=== PATIENT | female | born 1935 | race Caucasian/White ===

== ENCOUNTER 2017-03-23 16:14 | Emergency (ER) | payer MEDICARE, BC ==
[2017-03-23] MEDS ORDERED: Lactated Ringers 1,000 ML IV ONE (17:08)
--- NOTE | 2017-03-23 17:10 | EDM.PDOC ---
ED HPI GENERAL MEDICAL PROBLEM - General Chief Complaint: Genitourinary Problem Stated Complaint: SENT FROM CLINIC Time Seen by Provider: 03/23/17 16:50 Source of Information: Reports: Patient, Family, Old Records History Limitations: Reports: No Limitations - History of Present Illness INITIAL COMMENTS - FREE TEXT/NARRATIVE: 82 yo female went to a local clinic today for fatigue. Her blood work showed an elevated creatinine so she was referred to the ER. She reports also dyspnea on exertion as well for the past few weeks or months. No vomiting or fever or pain. Has been eating and drinking OK. Sleeps a lot more than usual. No CLAYTON or nausea. Also has gradually increasing difficulty controlling her urine. labs today: Hbg 11.6 BUN 46 Cr 3.75 glc 315 09/30/16 13.7 1 yr ago 19 1.28 128 Onset: Gradual Duration: Week(s):, Getting Worse Location: Reports: Generalized Quality: Reports: Other (no pain) Severity: Moderate Improves with: Reports: Rest Worsens with: Reports: Movement Context: Reports: Other (unknown) Associated Symptoms: Reports: Malaise, Shortness of Breath (with exertion only) , Weakness (no localized.). 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 Denies: Fever, Chills, Diaphoresis, Decreased Appetite HEENT: Reports: No Symptoms Respiratory: Reports: Shortness of Breath (With exertion only). Denies: Wheezing, Cough, Sputum, Hemoptysis Cardiovascular: Reports: No Symptoms Endocrine: Reports: Fatigue GI/Abdominal: Reports: No Symptoms : Reports: Incontinence Musculoskeletal: Reports: No Symptoms Skin: Reports: No Symptoms Neurological: Reports: Weakness (mild diffuse) Psychiatric: Reports: No Symptoms ED EXAM, GENERAL - Physical Exam Exam: See Below Exam Limited By: No Limitations General Appearance: Alert, WD/WN, No Apparent Distress, Obese Eye Exam: Bilateral Eye: Normal Inspection Ears: Normal External Exam, Normal Canal, Hearing Grossly Normal, Normal TMs Ear Exam: Bilateral Ear: Auricle Normal, Canal Normal, TM normal Nose: Normal Inspection, Normal Mucosa, No Blood Throat/Mouth: Normal Inspection, Normal Lips, Normal Teeth, Normal Oropharynx, Normal Voice, No Airway Compromise Head: Atraumatic, Normocephalic Neck: Normal Inspection, Supple, Non-Tender Respiratory/Chest: No Respiratory Distress, Lungs Clear, Normal Breath Sounds, No Accessory Muscle Use Cardiovascular: Regular Rate, Rhythm, No Edema GI/Abdominal: Normal Bowel Sounds, Non-Tender, No Distention Back Exam: Normal Inspection. No: CVA Tenderness (R), CVA Tenderness (L) Extremities: Normal Inspection, Normal Range of Motion, Non-Tender, No Pedal Edema Neurological: Alert, Oriented, CN II-XII Intact, Normal Cognition, No Motor/ Sensory Deficits Psychiatric: Normal Affect, Normal Mood Skin Exam: Warm, Dry, Intact, Normal Color, No Rash Lymphatic: No Adenopathy Course - Vital Signs Last Recorded V/S: Last Vital Signs Temp 36.7 C 03/23/17 16:42 Pulse 99 03/23/17 16:42 Resp 16 03/23/17 16:42 BP 140/71 03/23/17 16:42 Pulse Ox 93 L 03/23/17 16:42 - Orders/Labs/Meds Orders: Active Orders 24 hr Category Date Time Status Orthostatic Vital Signs [RC] ASDIRECTED Care 03/23/17 16:19 Active Lactated Ringers [Ringers, Lactated] 1,000 ml Med 03/23/17 17:08 Active IV BOLUS Medication Orders Lactated Ringer's (Ringers, Lactated) 1,000 mls @ 1,000 mls/hr IV BOLUS ONE Stop: 03/23/17 18:07 Meds: Medications Generic Name Dose Route Start Last Admin Trade Name Freq PRN Reason Stop Dose Admin Lactated Ringer's 1,000 mls @ 1,000 mls/hr 03/23/17 17:08 Ringers, Lactated IV 03/23/17 18:07 BOLUS ONE Departure - Departure Time of Disposition: 17:45 Disposition: DC/Tfer to [facility] 02 Condition: Fair Clinical Impression: Renal failure (ARF), acute on chronic Qualifiers: Acute renal failure type: unspecified Chronic kidney disease stage: unspecified stage Qualified Code(s): N17.9 - Acute kidney failure, unspecified; N18.9 - Chronic kidney disease, unspecified; N18.9 - Chronic kidney disease, unspecified - Discharge Information Referrals: Rosalba Garcia PA [Primary Care Provider] - Forms: ED Department Discharge - My Orders Last 24 Hours: My Active Orders 03/23/17 16:19 Orthostatic Vital Signs [RC] ASDIRECTED 03/23/17 17:08 Lactated Ringers [Ringers, Lactated] 1,000 ml IV BOLUS - Assessment/Plan Last 24 Hours: My Active Orders 03/23/17 16:19 Orthostatic Vital Signs [RC] ASDIRECTED 03/23/17 17:08 Lactated Ringers [Ringers, Lactated] 1,000 ml IV BOLUS
== END 2017-03-23 18:16 ==
LOC: JP.ED 16:14
DX: N17.9 Acute kidney failure, unspecified (principal); E11.22 Type 2 diabetes mellitus with diabetic chronic kidney disease; N18.9 Chronic kidney disease, unspecified
CPT/HCPCS: 96360; 99284; J7120

== ENCOUNTER 2017-05-03 09:49 | Emergency (ER) | payer MEDICARE, BC ==
--- NOTE | 2017-05-03 10:15 | EDM.PDOC ---
ED HPI GENERAL MEDICAL PROBLEM - General Chief Complaint: Genitourinary Problem Stated Complaint: KIDNEY TUBE NOT DRAINING Time Seen by Provider: 05/03/17 10:38 Source of Information: Reports: Patient History Limitations: Reports: No Limitations - History of Present Illness INITIAL COMMENTS - FREE TEXT/NARRATIVE: pt has a history of a obstructive uropathy She had urostomy tubes placed the 28th off Dec. They have been draining well until last nite when the left tube was no longer draining. Onset: Other ( the tube stopped draining last nite. She has good drainage from the rt. ) Duration: Hour(s): Location: Reports: Abdomen, Other (pt has a nephrostomy tube which is not draining. ) Quality: Reports: Other (no pain. ) Associated Symptoms: Reports: No Other Symptoms, Other ( Pt has no increased pain or temp. 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, Type II - Past Surgical History Other GI Surgeries/Procedures: PROLAPSED RECTUM Female Surgical History: Reports: Hysterectomy Other Female Surgeries/Procedures: PROLAPSED UTERUS Musculoskeletal Surgical History: Reports: Hip Replacement Social & Family History - Tobacco Use Smoking Status *Q: Unknown Ever Smoked ED ROS GENERAL - Review of Systems Review Of Systems: See Below Constitutional: Reports: No Symptoms HEENT: Reports: No Symptoms Respiratory: Reports: No Symptoms Cardiovascular: Reports: No Symptoms Endocrine: Reports: No Symptoms GI/Abdominal: Reports: No Symptoms : Reports: Other (pt had bilateral nephostomy tubes. ) Musculoskeletal: Reports: No Symptoms ED EXAM, RENAL/ - Physical Exam Exam: See Below Text/Narrative:: pt is alert and comfortable. Her neprostomy tube on the left is not draining. Exam Limited By: No Limitations General Appearance: Alert, Anxious Ears: Normal TMs Nose: Normal Inspection Throat/Mouth: Normal Inspection Head: Atraumatic Neck: Normal Inspection Respiratory/Chest: No Respiratory Distress Cardiovascular: Regular Rate, Rhythm (Female) Exam: Other (pt has a nephrostomy tube on the left that is not draining. It was irrigated last nite and seemed to be open. When we went to irrigate here it was noed that te stop cock was actually closed and when this was opend up there was good drainage. ) Rectal (Female) Exam: Deferred Back Exam: Normal Inspection Extremities: Normal Inspection Neurological: Alert, Oriented, Normal Cognition Course - Vital Signs Last Recorded V/S: Last Vital Signs Temp 36.6 C 05/03/17 10:25 Pulse 69 05/03/17 10:25 Resp 16 05/03/17 10:25 BP 144/70 H 05/03/17 10:25 Pulse Ox 95 05/03/17 10:25 - Orders/Labs/Meds Orders: Active Orders 24 hr Category Date Time Status CULTURE URINE [RM] Stat Lab 05/03/17 11:26 Received Labs: Laboratory Tests 05/03/17 05/03/17 05/03/17 Range/Units 10:46 10:46 10:46 WBC 7.1 (4.5-11.0) K/uL RBC 4.00 (3.30-5.50) M/uL Hgb 11.6 L (12.0-15.0) g/dL Hct 37.4 (36.0-48.0) % MCV 94 (80-98) fL MCH 29 (27-31) pg MCHC 31 L (32-36) % Plt Count 293 (150-400) K/uL Neut % (Auto) 76 H (36-66) % Lymph % (Auto) 14 L (24-44) % [place] % (Auto) 8 H (2-6) % Eos % (Auto) 1 L (2-4) % Baso % (Auto) 0 (0-1) % Sodium 142 (140-148) mmol/L Potassium 3.6 (3.6-5.2) mmol/L Chloride 108 (100-108) mmol/L Carbon Dioxide 23 (21-32) mmol/L Anion Gap 11.5 (5.0-14.0) mmol/L BUN 24 H (7-18) mg/dL Creatinine 2.0 H (0.6-1.0) mg/dL Est Cr Clr Drug Dosing 17.45 mL/min Estimated GFR (MDRD) 24 L (>60) Glucose 124 H (74-106) mg/dL Calcium 9.2 (8.5-10.1) mg/dL Total Bilirubin 0.4 (0.2-1.0) mg/dL AST 12 L (15-37) U/L ALT 14 (12-78) U/L Alkaline Phosphatase 67 (46-116) U/L Total Protein 6.3 L (6.4-8.2) g/dL Albumin 3.1 L (3.4-5.0) g/dL Globulin 3.2 (2.3-3.5) g/dL Albumin/Globulin Ratio 1.0 L (1.2-2.2) Urine Color Yellow Urine Appearance Cloudy Urine pH 6.0 (4.5-8.0) Ur Specific [place] 1.020 (1.008-1.030) Urine Protein 100 H (NEGATIVE) mg/dL Urine Glucose (UA) 50 H (NEGATIVE) mg/dL Urine Ketones Negative (NEGATIVE) mg/dL Urine Occult Blood Large (NEGATIVE) Urine Nitrite Positive H (NEGATIVE) Urine Bilirubin Negative (NEGATIVE) Urine Urobilinogen Normal (NORMAL) mg/dL Ur Leukocyte Esterase Large (NEGATIVE) Urine RBC 10-20 H (0-5) Urine WBC Packed H (0-5) Ur Epithelial Cells Not seen Amorphous Sediment Not seen Urine Bacteria Many Urine Mucus Not seen - Re-Assessments/Exams Free Text/Narrative Re-Assessment/Exam: 05/03/17 11:41 Pt has a stable creatnine and her other labs looked stable. Her urine was cultured and her urine looked very infected. Departure - Departure Time of Disposition: 11:35 Disposition: Home, Self-Care 01 Condition: Fair Clinical Impression: Obstructed nephrostomy tube, UTI (urinary tract infection) - Discharge Information Instructions: Urinary Tract Infection, Adult Referrals: Rosalba Garcia PA [Primary Care Provider] - Forms: ED Department Discharge Care Plan Goals: Push fluids, cipro 500mg bid for five days until culture is back copy of labs and urine to take to [facility]. --visit tomorrow. - My Orders Last 24 Hours: My Active Orders 05/03/17 11:26 CULTURE URINE [RM] Stat - Assessment/Plan Last 24 Hours: My Active Orders 05/03/17 11:26 CULTURE URINE [RM] Stat
== END 2017-05-03 11:45 | disposition home or self-care (01) ==
LOC: JP.ED 09:49
DX: T83.092A Other mechanical complication of nephrostomy catheter, initial encounter (principal); N39.0 Urinary tract infection, site not specified; Z79.899 Other long term (current) drug therapy; E11.9 Type 2 diabetes mellitus without complications; E78.00 Pure hypercholesterolemia, unspecified
CPT/HCPCS: 36415; 80053; 81001; 85025; 87086; 87088; 87186; 99283; 99284

== ENCOUNTER 2019-04-06 06:55 | Day surgery (SDC) | payer MEDICARE, BC ==
[~2019-04-06 06:55] MED LIST: Sodium Chloride 0.9% 10 ML Syringe FLUSH PRN
--- NOTE | 2019-04-06 11:10 | OR ---
DATE OF PROCEDURE: 04/06/2019 SURGEON: Emma Garcia MD POSTOPERATIVE CARE: Postoperative care will be provided mainly at the [address] [place] [address] [facility] in conjunction with [facility]. PREOPERATIVE DIAGNOSIS: Cataract, left eye. POSTOPERATIVE DIAGNOSIS: Cataract, left eye. PROCEDURE: Phacoemulsification with intraocular lens placement, left eye. ANESTHESIA: Topical and intracameral. ESTIMATED BLOOD LOSS: Minimal. COMPLICATIONS: None. PATHOLOGY SPECIMENS: None. SURGICAL FINDINGS: None. INDICATION FOR PROCEDURE: The patient is an 84-year-old female with history of a visually significant cataract in the left eye, which interfered with activities of daily living. This consisted of a nuclear sclerosis cataract. Following careful discussion of the risks, benefits and alternatives to cataract extraction with intraocular lens placement including blindness and , the patient elected to proceed, and informed, written consent was obtained prior to the procedure. DESCRIPTION OF THE PROCEDURE: The patient was previously identified, and a alok placed above the left eye. All sources, including the patient, indicated that the left eye was the correct eye. The patient was subsequently taken to the operating room where standard monitors were applied. The patient was then prepped and draped in the usual sterile fashion for ophthalmic surgery. Attention was first directed at the 12 o'clock position where a paracentesis port was fashioned. Shugar solution followed by Viscoat was instilled into the eye. Attention was then directed to the 8:30 position where a triplanar incision was made in a near-clear manner using a keratome. A continuous capsulorrhexis was then made using a combination of the cystotome and Utrata forceps. Hydrodissection was achieved using a balanced salt solution, and the lens rotated nicely. Phacoemulsification was then done using a modified [id number] technique without complication. Phaco time was 7.94 CDE. The remaining cortex was removed using the irrigation/aspiration handpiece. Provisc was then instilled into the eye. A Technis lens, model [id number], at 24.5 diopters was then placed in the capsular bag using an Spray injector. The remaining viscoelastic was removed using the irrigation/aspiration forceps. All wounds were then checked and found to be watertight. The lid speculum and drapes were removed. Maxitrol ointment was placed in the patient's left eye, and the eye was shielded. The patient tolerated the procedure well. The patient was instructed to follow up tomorrow. All needle and sponge counts were correct at the end of the procedure. Emma Garcia MD /[id number]
== END 2019-04-06 09:32 | disposition home or self-care (01) ==
LOC: JP.SDS 06:55
PROVIDERS: ATTEND Ophthalmology
DX: H25.12 Age-related nuclear cataract, left eye (principal); I12.9 Hypertensive chronic kidney disease with stage 1 through stage 4 chronic kidney disease, or unspecified chronic kidney disease; N18.9 Chronic kidney disease, unspecified; E11.9 Type 2 diabetes mellitus without complications; E66.9 Obesity, unspecified; Z68.34 Body mass index [BMI] 34.0-34.9, adult
CPT/HCPCS: 66984; V2632

== ENCOUNTER 2019-05-25 06:28 | Day surgery (SDC) | payer MEDICARE, BC ==
[2019-05-25] MEDS ORDERED: Sodium Chloride 0.9% 10 ML Syringe FLUSH PRN (06:50)
--- NOTE | 2019-05-25 13:44 | OR ---
DATE OF PROCEDURE: 05/25/2019 SURGEON: Emma Garcia MD POSTOPERATIVE CARE: Postoperative care will be provided mainly at the [address] [place] [address] [facility] in conjunction with [facility]. PREOPERATIVE DIAGNOSIS: Cataract, right eye. POSTOPERATIVE DIAGNOSIS: Cataract, right eye. PROCEDURE: Phacoemulsification with intraocular lens placement, right eye. ANESTHESIA: Topical and intracameral. ESTIMATED BLOOD LOSS: Minimal. COMPLICATIONS: None. PATHOLOGY SPECIMENS: None. SURGICAL FINDINGS: None. INDICATION FOR PROCEDURE: The patient is an 84-year-old female with history of a visually significant cataract in the right eye, which interfered with activities of daily living. This consisted of a nuclear sclerosis cataract. Following careful discussion of the risks, benefits and alternatives to cataract extraction with intraocular lens placement including blindness and , the patient elected to proceed, and informed, written consent was obtained prior to the procedure. DESCRIPTION OF THE PROCEDURE: The patient was previously identified, and a alok placed above the right eye. All sources, including the patient, indicated that the right eye was the correct eye. The patient was subsequently taken to the operating room where standard monitors were applied. The patient was then prepped and draped in the usual sterile fashion for ophthalmic surgery. Attention was first directed at the 12 o'clock position where a paracentesis port was fashioned. Shugar solution followed by Viscoat was instilled into the eye. Attention was then directed to the 8:30 position where a triplanar incision was made in a near-clear manner using a keratome. A continuous capsulorrhexis was then made using a combination of the cystotome and Utrata forceps. Hydrodissection was achieved using a balanced salt solution, and the lens rotated nicely. Phacoemulsification was then done using a modified [id number] technique without complication. Phaco time was 8.13 CDE. The remaining cortex was removed using the irrigation/aspiration handpiece. Provisc was then instilled into the eye. A Technis lens, model [id number], at 24.0 diopters was then placed in the capsular bag using an Java injector. The remaining viscoelastic was removed using the irrigation/aspiration forceps. All wounds were then checked and found to be watertight. The lid speculum and drapes were removed. Maxitrol ointment was placed in the patient's right eye, and the eye was shielded. The patient tolerated the procedure well. The patient was instructed to follow up tomorrow. All needle and sponge counts were correct at the end of the procedure. Emma Garcia MD /[id number]
== END 2019-05-25 08:30 | disposition home or self-care (01) ==
LOC: JP.SDS 06:28
PROVIDERS: ATTEND Ophthalmology
DX: E11.36 Type 2 diabetes mellitus with diabetic cataract (principal); H25.11 Age-related nuclear cataract, right eye; I12.9 Hypertensive chronic kidney disease with stage 1 through stage 4 chronic kidney disease, or unspecified chronic kidney disease; E11.22 Type 2 diabetes mellitus with diabetic chronic kidney disease; N18.9 Chronic kidney disease, unspecified
CPT/HCPCS: 66984; V2632

== ENCOUNTER 2022-12-08 10:17 | Emergency (ER) | payer MEDICARE, BC ==
[2022-12-08] MEDS ORDERED: Sodium Chloride 0.9% 10 ML Syringe FLUSH PRN (10:20)
[2022-12-08 10:52] LABS: BASOPHILS PERCENT AUTO 0.2 % (0.1-1.3); EOSINOPHILS ABSOLUTE AUTO 0.11 K/uL (0.00-0.40); EOSINOPHILS PERCENT AUTO 1.1 % (0.0-5.4); HEMATOCRIT 25.4 % (34.3-46.0); IMMATURE GRAN ABSOLUTE AUTO 0.13 K/uL (0.00-0.23); IMMATURE GRAN PERCENT AUTO 1.3 % (0.0-0.7); LYMPHOCYTES ABSOLUTE AUTO 0.93 K/uL (0.8-3.3); LYMPHOCYTES PERCENT AUTO 9.4 % (11.4-47.7); MEAN CORPUSCULAR HEMOGLOBIN 19.5 pg (31.6-35.5); MEAN CORPUSCULAR HGB CONC 27.2 g/dL (31.6-35.5); MEAN CORPUSCULAR VOLUME 71.8 fL (81.4-99.0); MONOCYTES ABSOLUTE AUTO 0.64 K/uL (0.20-0.90); MONOCYTES PERCENT AUTO 6.5 % (3.3-12.6); NEUTROPHILS ABSOLUTE AUTO 8.03 K/uL (1.0-7.6); NEUTROPHILS PERCENT AUTO 81.5 % (40.0-78.1); PLATELET COUNT,PLT 513 K/uL (130-375); RED BLOOD CELL COUNT 3.54 M/uL (3.77-5.24); WHITE BLOOD CELL COUNT,WBC 9.9 K/uL (3.2-11.0)
[2022-12-08 10:59] LABS: BASOPHILS ABSOLUTE AUTO 0.02 K/uL (0.00-0.10); HEMOGLOBIN 6.9 g/dL (11.2-15.5)
[2022-12-08 11:06] LABS: CALCIUM 8.8 mg/dL (8.5-10.1); CREATININE 1.3 mg/dL (0.6-1.0); EST CRCL DRUG DOSING (CG) 23.44 mL/min; POTASSIUM,K 4.1 mmol/L (3.6-5.2)
[2022-12-08 11:09] LABS: ANION GAP 17.1 mmol/L (5.0-14.0)
[2022-12-08 11:10] LABS: RETICULOCYTE COUNT PERCENT 2.05 % (0.03-0.11)
[2022-12-08 11:11] LABS: PROTHROMBIN TIME 10.3 sec (9.2-10.6); PTT,PARTIAL THROMBOPLSTIN TIME 28.5 sec (21.8-27.3)
[2022-12-08 11:27] LABS: IRON,FE 11 ug/dL (50-170); PERCENT FE SATURATION 5 % (20-55); TOTAL IRON BINDING CAPACITY 225 ug/dl (250-450)
[2022-12-08] MEDS ORDERED: Sodium Chloride 0.9% 1,000 ML IV SCH (11:45)
[2022-12-08 11:52] LABS: TSH ULTRASENSITIVE 5.082 uIU/mL (0.358-3.740)
[2022-12-08 17:27] LABS: HEMATOCRIT 31.2 % (34.3-46.0); HEMOGLOBIN 9.2 g/dL (11.2-15.5)
== END 2022-12-08 18:14 | disposition home or self-care (01) ==
LOC: JP.ED 10:17
DX: D50.9 Iron deficiency anemia, unspecified (principal); E78.00 Pure hypercholesterolemia, unspecified; E11.22 Type 2 diabetes mellitus with diabetic chronic kidney disease; N18.9 Chronic kidney disease, unspecified; R94.6 Abnormal results of thyroid function studies; D52.9 Folate deficiency anemia, unspecified; E66.9 Obesity, unspecified; Z79.82 Long term (current) use of aspirin; Z79.899 Other long term (current) drug therapy; Z68.31 Body mass index [BMI] 31.0-31.9, adult
CPT/HCPCS: 36415; 36430; 80048; 82607; 82728; 82746; 83550; 84443; 85014; 85018; 85025; 85045; 85610; 85730; 86850; 86900; 86901; 86920; 86922; 99284; P9016

== ENCOUNTER 2023-01-12 06:44 | Day surgery (SDC) | payer MEDICARE, BC ==
[2023-01-12] MEDS ORDERED: fentaNYL 50 MCG/ML SDV ONE (07:09)
[2023-01-12] MEDS ORDERED: Propofol 200 MG/20 ML SDV ONE (07:09)
[2023-01-12] MEDS ORDERED: Dextrose 5%-Lactated Ringers 1,000 ML IV SCH (07:30)
[2023-01-12 07:50] LABS: HEMATOCRIT 25.9 % (34.3-46.0); HEMOGLOBIN 7.5 g/dL (11.2-15.5); MEAN CORPUSCULAR HEMOGLOBIN 21.7 pg (31.6-35.5); MEAN CORPUSCULAR VOLUME 74.9 fL (81.4-99.0); RED BLOOD CELL COUNT 3.46 M/uL (3.77-5.24); WHITE BLOOD CELL COUNT,WBC 10.3 K/uL (3.2-11.0)
[2023-01-12 08:24] LABS: A/G RATIO 0.5 (1.2-2.2); ALANINE AMINOTRANSFERASE,ALT 4 U/L (12-78); ALBUMIN 1.7 g/dL (3.4-5.0); ALKALINE PHOSPHATASE 93 U/L (46-116); ASPARTATE AMNIOTRANSFERASE,AST 7 U/L (15-37); BILIRUBIN TOTAL 0.5 mg/dL (0.2-1.0); BLOOD UREA NITROGEN,BUN 12 mg/dL (7-18); CALCIUM 8.8 mg/dL (8.5-10.1); CARBON DIOXIDE,CO2 24 mmol/L (21-32); CHLORIDE,CL 101 mmol/L (100-108); EST CRCL DRUG DOSING (CG) 29.01 mL/min; ESTIMATED GFR 55 mL/min (>60); GLUCOSE RANDOM 145 mg/dL (74-106); MAGNESIUM 2.1 mg/dL (1.8-2.4); PHOSPHORUS 3.6 mg/dL (2.5-4.9); POTASSIUM,K 3.8 mmol/L (3.6-5.2); PRO B-TYPE NATRIUR PEPT,BNPPRO 759 pg/mL (5-450); PROTEIN TOTAL,TP 5.4 g/dL (6.4-8.2); SODIUM,NA 135 mmol/L (140-148)
[2023-01-12 08:25] LABS: ANION GAP 13.8 mmol/L (5.0-14.0)
[2023-01-12] MEDS ORDERED: Sodium Chloride 0.9% 1,000 ML IV SCH (09:30)
[2023-01-12 14:17] LABS: HEMATOCRIT 32.9 % (34.3-46.0); HEMOGLOBIN 9.9 g/dL (11.2-15.5); MEAN CORPUSCULAR HEMOGLOBIN 23.7 pg (31.6-35.5); MEAN CORPUSCULAR HGB CONC 30.1 g/dL (31.6-35.5); MEAN CORPUSCULAR VOLUME 78.9 fL (81.4-99.0); RED BLOOD CELL COUNT 4.17 M/uL (3.77-5.24); WHITE BLOOD CELL COUNT,WBC 12.3 K/uL (3.2-11.0)
== END 2023-01-12 14:25 | disposition home or self-care (01) ==
LOC: JP.SDS 06:44
PROVIDERS: ATTEND Surgery
DX: C18.4 Malignant neoplasm of transverse colon (principal); K64.9 Unspecified hemorrhoids; E78.5 Hyperlipidemia, unspecified; E11.22 Type 2 diabetes mellitus with diabetic chronic kidney disease; N18.30 Chronic kidney disease, stage 3 unspecified; E66.9 Obesity, unspecified; Z68.32 Body mass index [BMI] 32.0-32.9, adult
CPT/HCPCS: 36415; 36430; 45380; 80053; 82378; 83735; 83880; 84100; 85027; 86850; 86900; 86901; 86920; 86922; J2704; J3010; J7030; J7121; P9016

== ENCOUNTER 2023-09-30 11:23 | Emergency (ER) | payer MEDICARE, BC ==
[2023-09-30] MEDS: Sodium Chloride 0.9% 1,000 ML IV ONE (12:55)
[2023-09-30 12:56] LABS: BASOPHILS ABSOLUTE AUTO 0.04 K/uL (0.00-0.10); BASOPHILS PERCENT AUTO 0.4 % (0.1-1.3); EOSINOPHILS ABSOLUTE AUTO 0.06 K/uL (0.00-0.40); EOSINOPHILS PERCENT AUTO 0.7 % (0.0-5.4); HEMATOCRIT 44.8 % (34.3-46.0); HEMOGLOBIN 14.9 g/dL (11.2-15.5); IMMATURE GRAN ABSOLUTE AUTO 0.07 K/uL (0.00-0.23); IMMATURE GRAN PERCENT AUTO 0.8 % (0.0-0.7); LYMPHOCYTES ABSOLUTE AUTO 1.24 K/uL (0.8-3.3); LYMPHOCYTES PERCENT AUTO 13.9 % (11.4-47.7); MEAN CORPUSCULAR HEMOGLOBIN 29.5 pg (31.6-35.5); MEAN CORPUSCULAR HGB CONC 33.3 g/dL (31.6-35.5); MEAN CORPUSCULAR VOLUME 88.7 fL (81.4-99.0); MONOCYTES ABSOLUTE AUTO 0.63 K/uL (0.20-0.90); MONOCYTES PERCENT AUTO 7.1 % (3.3-12.6); NEUTROPHILS ABSOLUTE AUTO 6.85 K/uL (1.0-7.6); NEUTROPHILS PERCENT AUTO 77.1 % (40.0-78.1); PLATELET COUNT,PLT 240 K/uL (130-375); RED BLOOD CELL COUNT 5.05 M/uL (3.77-5.24); WHITE BLOOD CELL COUNT,WBC 8.9 K/uL (3.2-11.0)
[2023-09-30 13:13] LABS: BLOOD UREA NITROGEN,BUN 18 mg/dL (7-18); CALCIUM 9.7 mg/dL (8.5-10.1); CARBON DIOXIDE,CO2 26 mmol/L (21-32); CHLORIDE,CL 103 mmol/L (100-108); CREATININE 1.3 mg/dL (0.6-1.0); EST CRCL DRUG DOSING (CG) 24.11 mL/min; ESTIMATED GFR 40 mL/min (>60); GLUCOSE RANDOM 129 mg/dL (74-106); POTASSIUM,K 4.2 mmol/L (3.6-5.2); SODIUM,NA 138 mmol/L (140-148)
[2023-09-30 13:20] LABS: ANION GAP 13.2 mmol/L (5.0-14.0)
[2023-09-30 13:21] LABS: C-REACTIVE PROTEIN < 0.50 mg/dL (<0.50)
[2023-09-30 13:37] LABS: APPEARANCE,URINE SLIGHTLY CLOUDY (CLEAR); BILIRUBIN,URINE NEGATIVE (NEGATIVE); COLOR,URINE YELLOW (YELLOW); GLUCOSE,URINE NEGATIVE (NEGATIVE); KETONES,URINE NEGATIVE (NEGATIVE); LEUKOCYTE ESTERASE,URINE MODERATE (NEGATIVE); NITRITE,URINE NEGATIVE (NEGATIVE); OCCULT BLOOD,URINE NEGATIVE (NEGATIVE); PROTEIN,URINE NEGATIVE (NEGATIVE); UROBILINOGEN,URINE 0.2 EU/dL (0.2-1.0)
[2023-09-30 13:53] LABS: AMORPHOUS SEDIMENT,URINE NOT SEEN; BACTERIA,URINE MODERATE; EPITHELIAL CELLS,URINE FEW; MUCUS,URINE FEW; RBC,URINE 0-5 (0-5)
[2023-09-30] MEDS: HYDROmorphone 0.5 MG/0.5 ML Syringe IVPUSH ONE (14:10)
== END 2023-09-30 15:55 | disposition home or self-care (01) ==
LOC: JP.ED 11:23
DX: N12 Tubulo-interstitial nephritis, not specified as acute or chronic (principal); E78.00 Pure hypercholesterolemia, unspecified; E66.9 Obesity, unspecified; E11.9 Type 2 diabetes mellitus without complications; E03.9 Hypothyroidism, unspecified; Z79.82 Long term (current) use of aspirin; Z79.890 Hormone replacement therapy; Z79.899 Other long term (current) drug therapy; Z86.16 Personal history of COVID-19; Z90.710 Acquired absence of both cervix and uterus; Z68.32 Body mass index [BMI] 32.0-32.9, adult
CPT/HCPCS: 36415; 74176; 80048; 81001; 85025; 86140; 87086; 87088; 87186; 96361; 96374; 99284; J1170; J7030

== ENCOUNTER 2023-10-24 20:10 | Emergency (ER) | payer MEDICARE, BC ==
[2023-10-24 23:04] LABS: BASOPHILS ABSOLUTE AUTO 0.04 K/uL (0.00-0.10); BASOPHILS PERCENT AUTO 0.6 % (0.1-1.3); EOSINOPHILS ABSOLUTE AUTO 0.03 K/uL (0.00-0.40); EOSINOPHILS PERCENT AUTO 0.4 % (0.0-5.4); HEMOGLOBIN 14.1 g/dL (11.2-15.5); IMMATURE GRAN ABSOLUTE AUTO 0.04 K/uL (0.00-0.23); IMMATURE GRAN PERCENT AUTO 0.6 % (0.0-0.7); LYMPHOCYTES ABSOLUTE AUTO 1.39 K/uL (0.8-3.3); LYMPHOCYTES PERCENT AUTO 20.2 % (11.4-47.7); MEAN CORPUSCULAR HEMOGLOBIN 30.3 pg (31.6-35.5); MEAN CORPUSCULAR HGB CONC 34.4 g/dL (31.6-35.5); MEAN CORPUSCULAR VOLUME 88.2 fL (81.4-99.0); MONOCYTES ABSOLUTE AUTO 0.83 K/uL (0.20-0.90); NEUTROPHILS ABSOLUTE AUTO 4.56 K/uL (1.0-7.6); NEUTROPHILS PERCENT AUTO 66.2 % (40.0-78.1); PLATELET COUNT,PLT 185 K/uL (130-375); RED BLOOD CELL COUNT 4.65 M/uL (3.77-5.24); WHITE BLOOD CELL COUNT,WBC 6.9 K/uL (3.2-11.0)
[2023-10-24 23:24] LABS: BLOOD UREA NITROGEN,BUN 15 mg/dL (7-18); CARBON DIOXIDE,CO2 25 mmol/L (21-32); CREATININE 1.3 mg/dL (0.6-1.0); GLUCOSE RANDOM 142 mg/dL (74-106)
[2023-10-24 23:25] LABS: A/G RATIO 0.9 (1.2-2.2); ALANINE AMINOTRANSFERASE,ALT 22 U/L (12-78); ALBUMIN 3.3 g/dL (3.4-5.0); ALKALINE PHOSPHATASE 102 U/L (46-116); AMYLASE 42 U/L (25-115); ASPARTATE AMNIOTRANSFERASE,AST 15 U/L (15-37); BILIRUBIN TOTAL 0.8 mg/dL (0.2-1.0); CALCIUM 9.4 mg/dL (8.5-10.1); EST CRCL DRUG DOSING (CG) 24.11 mL/min; ESTIMATED GFR 40 mL/min (>60); PROTEIN TOTAL,TP 6.9 g/dL (6.4-8.2)
[2023-10-24 23:26] LABS: POTASSIUM,K 4.2 mmol/L (3.6-5.2); SODIUM,NA 135 mmol/L (140-148)
[2023-10-24] MEDS: Lidocaine 4% 1 each Patch TOP ONE (23:42)
[2023-10-24 23:57] LABS: BILIRUBIN,URINE NEGATIVE (NEGATIVE); COLOR,URINE YELLOW (YELLOW); GLUCOSE,URINE NEGATIVE (NEGATIVE); KETONES,URINE NEGATIVE (NEGATIVE); LEUKOCYTE ESTERASE,URINE MODERATE (NEGATIVE); NITRITE,URINE NEGATIVE (NEGATIVE); OCCULT BLOOD,URINE NEGATIVE (NEGATIVE); PROTEIN,URINE NEGATIVE (NEGATIVE); UROBILINOGEN,URINE 0.2 EU/dL (0.2-1.0)
[2023-10-25 00:01] LABS: AMORPHOUS SEDIMENT,URINE NOT SEEN; APPEARANCE,URINE SLIGHTLY CLOUDY (CLEAR); BACTERIA,URINE FEW; EPITHELIAL CELLS,URINE RARE; MUCUS,URINE NOT SEEN; RBC,URINE 0-5 (0-5)
[2023-10-25] MEDS: Cephalexin 250 MG Cap PO ONE (01:20)
[2023-10-25] MEDS: Acetaminophen 500 MG Tab PO ONE (01:20)
== END 2023-10-25 01:40 | disposition home or self-care (01) ==
LOC: JP.ED 20:10
DX: M54.50 Low back pain, unspecified (principal); G89.29 Other chronic pain; N39.0 Urinary tract infection, site not specified; E78.00 Pure hypercholesterolemia, unspecified; E11.22 Type 2 diabetes mellitus with diabetic chronic kidney disease; N18.9 Chronic kidney disease, unspecified; E06.9 Thyroiditis, unspecified; E66.9 Obesity, unspecified; Z86.16 Personal history of COVID-19; Z79.82 Long term (current) use of aspirin; Z79.899 Other long term (current) drug therapy; Z68.31 Body mass index [BMI] 31.0-31.9, adult
CPT/HCPCS: 36415; 74176; 80053; 81001; 82150; 85025; 87086; 99284; A9270

== ENCOUNTER 2023-11-10 15:26 | Emergency (ER) | payer MEDICARE, BC ==
[2023-11-10] MEDS: Morphine 2 MG/ML SYRINGE IM ONE (17:13)
[2023-11-10] MEDS: Acetaminophen/HYDROcodone 325-7.5 MG Tab PO STA (20:24)
[2023-11-10] MEDS: Gabapentin 300 MG Cap PO ONE (20:26)
== END 2023-11-10 20:35 | disposition home or self-care (01) ==
LOC: JP.ED 15:26
DX: S32.011A Stable burst fracture of first lumbar vertebra, initial encounter for closed fracture (principal); E11.9 Type 2 diabetes mellitus without complications; E03.9 Hypothyroidism, unspecified; E66.9 Obesity, unspecified; E78.00 Pure hypercholesterolemia, unspecified; Z86.16 Personal history of COVID-19; Z79.02 Long term (current) use of antithrombotics/antiplatelets; Z79.899 Other long term (current) drug therapy; W07.XXXA Fall from chair, initial encounter; Z68.32 Body mass index [BMI] 32.0-32.9, adult
CPT/HCPCS: 72131; 76377; 96372; 99283; A9270; J2270

== ENCOUNTER 2024-02-02 11:07 | Inpatient (IN) | payer MEDICARE, BC ==
[2024-02-02 11:47] LABS: BASOPHILS ABSOLUTE AUTO 0.03 K/uL (0.00-0.10); BASOPHILS PERCENT AUTO 0.3 % (0.1-1.3); EOSINOPHILS ABSOLUTE AUTO 0.07 K/uL (0.00-0.40); EOSINOPHILS PERCENT AUTO 0.7 % (0.0-5.4); HEMATOCRIT 40.7 % (34.3-46.0); HEMOGLOBIN 13.8 g/dL (11.2-15.5); IMMATURE GRAN ABSOLUTE AUTO 0.09 K/uL (0.00-0.23); IMMATURE GRAN PERCENT AUTO 0.8 % (0.0-0.7); LYMPHOCYTES ABSOLUTE AUTO 0.79 K/uL (0.8-3.3); LYMPHOCYTES PERCENT AUTO 7.3 % (11.4-47.7); MEAN CORPUSCULAR HEMOGLOBIN 30.5 pg (31.6-35.5); MEAN CORPUSCULAR HGB CONC 33.9 g/dL (31.6-35.5); MONOCYTES ABSOLUTE AUTO 0.77 K/uL (0.20-0.90); MONOCYTES PERCENT AUTO 7.2 % (3.3-12.6); NEUTROPHILS PERCENT AUTO 83.7 % (40.0-78.1); PLATELET COUNT,PLT 285 K/uL (130-375); RED BLOOD CELL COUNT 4.52 M/uL (3.77-5.24); WHITE BLOOD CELL COUNT,WBC 10.8 K/uL (3.2-11.0)
[2024-02-02] MEDS: fentaNYL 50 MCG/ML SDV IVPUSH ONE (12:02)
[2024-02-02] MEDS: Sodium Chloride 0.9% 500 ML IV ONE (12:02)
[2024-02-02 12:09] LABS: A/G RATIO 0.7 (1.2-2.2); ALANINE AMINOTRANSFERASE,ALT 23 U/L (12-78); ALBUMIN 2.6 g/dL (3.4-5.0); ALKALINE PHOSPHATASE 133 U/L (46-116); ASPARTATE AMNIOTRANSFERASE,AST 12 U/L (15-37); BILIRUBIN TOTAL 0.7 mg/dL (0.2-1.0); BLOOD UREA NITROGEN,BUN 15 mg/dL (7-18); CALCIUM 10.1 mg/dL (8.5-10.1); CARBON DIOXIDE,CO2 24 mmol/L (21-32); CHLORIDE,CL 97 mmol/L (100-108); CREATININE 1.2 mg/dL (0.6-1.0); EST CRCL DRUG DOSING (CG) 23.28 mL/min; ESTIMATED GFR 44 mL/min (>60); GLUCOSE RANDOM 131 mg/dL (74-106); POTASSIUM,K 3.7 mmol/L (3.6-5.2); PROTEIN TOTAL,TP 6.4 g/dL (6.4-8.2); SODIUM,NA 134 mmol/L (140-148)
[2024-02-02 12:10] LABS: ANION GAP 16.7 mmol/L (5.0-14.0)
[2024-02-02 12:44] LABS: APPEARANCE,URINE CLOUDY (CLEAR); BILIRUBIN,URINE NEGATIVE (NEGATIVE); COLOR,URINE YELLOW (YELLOW); GLUCOSE,URINE NEGATIVE (NEGATIVE); KETONES,URINE NEGATIVE (NEGATIVE); LEUKOCYTE ESTERASE,URINE LARGE (NEGATIVE); NITRITE,URINE NEGATIVE (NEGATIVE); OCCULT BLOOD,URINE MODERATE (NEGATIVE); PH,URINE 7.5 (5.0-8.0); PROTEIN,URINE 100 mg/dL (NEGATIVE); UROBILINOGEN,URINE 0.2 EU/dL (0.2-1.0)
[2024-02-02 13:08] LABS: AMORPHOUS SEDIMENT,URINE NOT SEEN; BACTERIA,URINE FEW; EPITHELIAL CELLS,URINE FEW; MUCUS,URINE NOT SEEN; WBC,URINE SEMI-PACKED (0-5)
[2024-02-02] MEDS ORDERED: Ondansetron 4 MG Tab.DIS PO PRN (15:13)
[2024-02-02] MEDS ORDERED: LORazepam 2 MG/ML SDV IVPUSH PRN (15:13)
[2024-02-02] MEDS ORDERED: Ondansetron 4 MG/2 ML SDV IV PRN (15:13)
[2024-02-02] MEDS: HYDROmorphone 1 MG/ML Syringe IVPUSH PRN (15:26)
[2024-02-02] MEDS: cefTRIAXone 1 GM in Sodium Chloride 0.9% 50 ML IV SCH (17:34)
[2024-02-02] MEDS: oxyCODONE 5 MG Tab PO PRN (20:49)
[2024-02-02] MEDS: Gabapentin 100 MG Cap PO SCH (20:49)
[2024-02-02] MEDS: Aspirin 81 MG Tab.EC PO SCH (20:49)
[2024-02-02] MEDS ORDERED: Baclofen 10 MG Tab PO SCH ×2 (21:00)
[2024-02-03 05:20] LABS: HEMATOCRIT 37.1 % (34.3-46.0); HEMOGLOBIN 12.2 g/dL (11.2-15.5); MEAN CORPUSCULAR HEMOGLOBIN 30.7 pg (31.6-35.5); MEAN CORPUSCULAR HGB CONC 32.9 g/dL (31.6-35.5); MEAN CORPUSCULAR VOLUME 93.2 fL (81.4-99.0); RED BLOOD CELL COUNT 3.98 M/uL (3.77-5.24); WHITE BLOOD CELL COUNT,WBC 7.7 K/uL (3.2-11.0)
[2024-02-03 05:48] LABS: A/G RATIO 0.7 (1.2-2.2); ALANINE AMINOTRANSFERASE,ALT 20 U/L (12-78); ALBUMIN 2.3 g/dL (3.4-5.0); ALKALINE PHOSPHATASE 111 U/L (46-116); ASPARTATE AMNIOTRANSFERASE,AST 10 U/L (15-37); BILIRUBIN TOTAL 0.4 mg/dL (0.2-1.0); BLOOD UREA NITROGEN,BUN 17 mg/dL (7-18); CARBON DIOXIDE,CO2 27 mmol/L (21-32); CHLORIDE,CL 101 mmol/L (100-108); CREATININE 1.1 mg/dL (0.6-1.0); EST CRCL DRUG DOSING (CG) 25.39 mL/min; ESTIMATED GFR 48 mL/min (>60); GLUCOSE RANDOM 97 mg/dL (74-106); POTASSIUM,K 3.8 mmol/L (3.6-5.2); PROTEIN TOTAL,TP 5.7 g/dL (6.4-8.2); SODIUM,NA 136 mmol/L (140-148)
[2024-02-03 05:55] LABS: ANION GAP 11.8 mmol/L (5.0-14.0)
[2024-02-03] MEDS ORDERED: Levothyroxine 25 MCG Tab PO SCH (07:30)
[2024-02-03] MEDS: atorvaSTATin 20 MG Tab PO SCH (08:13)
[2024-02-03] MEDS: Cholecalciferol (Vitamin D3) 25 MCG Tab PO SCH (08:13)
[2024-02-03] MEDS: Polyethylene Glycol 3350 Powder 17 GM Packet PO SCH (08:13)
[2024-02-03] MEDS: Sennosides 8.6 MG Tab PO SCH (08:13)
[2024-02-03] MEDS: Levothyroxine 50 MCG Tab PO SCH (08:13)
[2024-02-03] MEDS ORDERED: CHOLECALCIFEROL 50 MCG PO SCH (09:00)
[2024-02-03] MEDS ORDERED: Non-Formulary Medication 1 Each (Sennosides [Senna] 8.6 MG Capsule) PO SCH (09:00)
[2024-02-03] MEDS: Acetaminophen 325 MG Tab PO PRN (12:43)
[2024-02-03] MEDS: Gadoteridol 279.3 MG/ML 15 ML SDV IV SCH (12:54)
[2024-02-03] MEDS ORDERED: Sodium Chloride 0.9% 60 ML IV SCH (16:00)
[2024-02-03] MEDS ORDERED: Iopamidol 612 MG/ML 100 ML Bottle IV SCH (16:00)
[2024-02-03] MEDS: Baclofen 10 MG Tab PO PRN (20:23)
[2024-02-04] MEDS: FLU (Fluad Triv) TS24-25 (65UP)/MF59C/PF 45 MCG/0.5 ML Syringe IM ONE (12:09)
[2024-02-04] MEDS ORDERED: methylPREDNISolone Acetate 80 MG/ML SDV ONE (16:06)
[2024-02-04] MEDS ORDERED: Bupivacaine 0.25% 10 ML SDV ONE (16:06)
[2024-02-05] MEDS: Sennosides/Docusate Sodium 50-8.6 MG Tab PO PRN (20:05)
[2024-02-05] MEDS: Melatonin 3 MG Tab PO SCH (20:06)
[2024-02-06] MEDS: Lidocaine 4% 1 each Patch TOP PRN (09:19)
[2024-02-06] MEDS: Magnesium Hydroxide 400 MG/5 ML Susp 30 ML Cup PO PRN (13:23)
[2024-02-07] MEDS: Bisacodyl 10 MG Supp RECTAL PRN (15:15)
[2024-02-07] MEDS: Sodium Phosphate,Monobasic/Sodium Phosphate,Dibasic Enema 133 ML Bottle RECTAL ONE (20:09)
[2024-02-07] MEDS: Docusate Sodium 100 MG Cap PO PRN (20:11)
[2024-02-07] MEDS: Bisacodyl 5 MG Tab PO ONE (20:11)
[2024-02-08 05:42] LABS: HEMATOCRIT 40.3 % (34.3-46.0); HEMOGLOBIN 13.2 g/dL (11.2-15.5); MEAN CORPUSCULAR HEMOGLOBIN 30.6 pg (31.6-35.5); MEAN CORPUSCULAR HGB CONC 32.8 g/dL (31.6-35.5); MEAN CORPUSCULAR VOLUME 93.5 fL (81.4-99.0); RED BLOOD CELL COUNT 4.31 M/uL (3.77-5.24); WHITE BLOOD CELL COUNT,WBC 17.5 K/uL (3.2-11.0)
[2024-02-08 06:05] LABS: A/G RATIO 0.8 (1.2-2.2); ALANINE AMINOTRANSFERASE,ALT 60 U/L (12-78); ALBUMIN 2.7 g/dL (3.4-5.0); ALKALINE PHOSPHATASE 127 U/L (46-116); ANION GAP 9.8 mmol/L (5.0-14.0); ASPARTATE AMNIOTRANSFERASE,AST 28 U/L (15-37); BILIRUBIN TOTAL 0.4 mg/dL (0.2-1.0); BLOOD UREA NITROGEN,BUN 34 mg/dL (7-18); CALCIUM 10.4 mg/dL (8.5-10.1); CARBON DIOXIDE,CO2 34 mmol/L (21-32); CHLORIDE,CL 97 mmol/L (100-108); CREATININE 1.4 mg/dL (0.6-1.0); EST CRCL DRUG DOSING (CG) 19.95 mL/min; ESTIMATED GFR 36 mL/min (>60); GLUCOSE RANDOM 140 mg/dL (74-106); POTASSIUM,K 4.8 mmol/L (3.6-5.2); PROTEIN TOTAL,TP 6.2 g/dL (6.4-8.2); SODIUM,NA 136 mmol/L (140-148)
[2024-02-08 07:39] LABS: APPEARANCE,URINE CLOUDY (CLEAR); BILIRUBIN,URINE NEGATIVE (NEGATIVE); COLOR,URINE YELLOW (YELLOW); GLUCOSE,URINE NEGATIVE (NEGATIVE); KETONES,URINE NEGATIVE (NEGATIVE); LEUKOCYTE ESTERASE,URINE SMALL (NEGATIVE); NITRITE,URINE NEGATIVE (NEGATIVE); OCCULT BLOOD,URINE MODERATE (NEGATIVE); PROTEIN,URINE 100 mg/dL (NEGATIVE); UROBILINOGEN,URINE 0.2 EU/dL (0.2-1.0)
[2024-02-08 07:51] LABS: AMORPHOUS SEDIMENT,URINE NOT SEEN; BACTERIA,URINE MODERATE; EPITHELIAL CELLS,URINE FEW; MUCUS,URINE NOT SEEN; WBC,URINE 75-100 (0-5)
[2024-02-08] MEDS: cefTRIAXone 1 GM in Sodium Chloride 0.9% 50 ML IV ONE (09:59)
== END 2024-02-08 11:46 | DRG 552 ==
LOC: JP.ED 11:07 → JP.MS 14:21 → OBSVTOIN 02-04 14:43
PROVIDERS: ADMIT Hospitalist; ATTEND Hospitalist
DX: M54.16 Radiculopathy, lumbar region (principal); N39.0 Urinary tract infection, site not specified; H91.90 Unspecified hearing loss, unspecified ear; H54.7 Unspecified visual loss; N18.9 Chronic kidney disease, unspecified; E78.00 Pure hypercholesterolemia, unspecified; K59.09 Other constipation; Z79.01 Long term (current) use of anticoagulants; E66.9 Obesity, unspecified; D64.9 Anemia, unspecified; Z86.16 Personal history of COVID-19; Z68.31 Body mass index [BMI] 31.0-31.9, adult; E03.9 Hypothyroidism, unspecified; E11.22 Type 2 diabetes mellitus with diabetic chronic kidney disease; F03.90 Unspecified dementia, unspecified severity, without behavioral disturbance, psychotic disturbance, mood disturbance, and anxiety; R31.9 Hematuria, unspecified; Z79.82 Long term (current) use of aspirin; Z68.33 Body mass index [BMI] 33.0-33.9, adult; Z98.49 Cataract extraction status, unspecified eye; Z96.649 Presence of unspecified artificial hip joint; Z79.899 Other long term (current) drug therapy; Z90.710 Acquired absence of both cervix and uterus
CPT/HCPCS: 36415 ×2; 71045 ×2; 72158 ×2; 74176 ×2; 80053 ×2; 81001; 82550; 85025; 85027; 87086; 92610; 94667; 94668; 96374; 97110; 97163; 99283; 99285; A9270 ×28; A9579 ×2; J0696 ×2; J1171 ×3; J3010; J3490 ×2; J7040; 73502-RT; 96365; 96366; 96375; 96376; 97530-GP; 99223; 99231; 99232; 99239; G0378; J1010

== ENCOUNTER 2024-06-14 03:09 | Inpatient (IN) | payer MEDICARE, BC ==
[2024-06-14] MEDS: Albuterol/Ipratropium 3.0-0.5 MG/3 ML Neb Soln NEB ONE ×2 (04:30→05:56)
[2024-06-14 04:58] LABS: ANION GAP 14.2 mmol/L (5.0-14.0); C-REACTIVE PROTEIN 2.46 mg/dL (<0.50); CALCIUM 9.7 mg/dL (8.5-10.1); CREATININE 1.2 mg/dL (0.6-1.0); EST CRCL DRUG DOSING (CG) 25.63 mL/min; POTASSIUM,K 5.2 mmol/L (3.6-5.2)
[2024-06-14 05:08] LABS: BASOPHILS ABSOLUTE AUTO 0.04 K/uL (0.00-0.10); BASOPHILS PERCENT AUTO 0.5 % (0.1-1.3); EOSINOPHILS ABSOLUTE AUTO 0.11 K/uL (0.00-0.40); EOSINOPHILS PERCENT AUTO 1.4 % (0.0-5.4); HEMATOCRIT 39.9 % (34.3-46.0); HEMOGLOBIN 13.1 g/dL (11.2-15.5); IMMATURE GRAN PERCENT AUTO 1.2 % (0.0-0.7); LYMPHOCYTES ABSOLUTE AUTO 1.07 K/uL (0.8-3.3); LYMPHOCYTES PERCENT AUTO 13.2 % (11.4-47.7); MEAN CORPUSCULAR HEMOGLOBIN 30.1 pg (31.6-35.5); MEAN CORPUSCULAR HGB CONC 32.8 g/dL (31.6-35.5); MEAN CORPUSCULAR VOLUME 91.7 fL (81.4-99.0); MONOCYTES ABSOLUTE AUTO 0.72 K/uL (0.20-0.90); MONOCYTES PERCENT AUTO 8.9 % (3.3-12.6); NEUTROPHILS ABSOLUTE AUTO 6.05 K/uL (1.0-7.6); NEUTROPHILS PERCENT AUTO 74.8 % (40.0-78.1); PLATELET COUNT,PLT 229 K/uL (130-375); RED BLOOD CELL COUNT 4.35 M/uL (3.77-5.24); WHITE BLOOD CELL COUNT,WBC 8.1 K/uL (3.2-11.0)
[2024-06-14] MEDS: Iopamidol 755 Mg/ML 100 ML Bottle IV SCH (07:48)
[2024-06-14] MEDS: Sodium Chloride 0.9% 10 ML Syringe FLUSH ONE (07:48)
[2024-06-14] MEDS: Sodium Chloride 0.9% 100 ML IV SCH (07:48)
[2024-06-14] MEDS: Albuterol/Ipratropium 3.0-0.5 MG/3 ML Neb Soln ONE ×2 (07:49→07:50)
[2024-06-14 08:17] LABS: BASE EXCESS ARTERIAL 1.2 mm/L; BICARBONATE,ARTERIAL 25.5 mmol/L (22.0-26.0); CARBOXYHEMOGLOBIN 1.3 % (0.0-1.6); METHEMOGLOBIN 0.4 %; O2 SATURATION ARTERIAL 97.3 % (95.0-98.0); OXYHEMOGLOBIN 95.6 %; PCO2 ARTERIAL 41.2 mmHg (35.0-42.0); PO2 ARTERIAL 88.2 mmHg (75.0-100.0); TOTAL HEMOGLOBIN 12.6 g/dL (12.0-16.0)
[2024-06-14] MEDS: methylPREDNISolone Sodium Succinate 40 MG/1 ML SDV IVPUSH ONE (08:58)
[2024-06-14] MEDS: Sodium Chloride 0.9% 500 ML IV ONE (08:58)
[2024-06-14] MEDS: Levothyroxine 25 MCG Tab PO ONE (10:48)
[2024-06-14] MEDS: Gabapentin 100 MG Cap PO ONE (10:48)
[2024-06-14] MEDS: busPIRone 5 MG Tab PO ONE (10:48)
[2024-06-14] MEDS: Acetaminophen 325 MG Tab PO ONE (10:48)
[2024-06-14] MEDS ORDERED: Melatonin 3 MG Tab PO PRN (10:50)
[2024-06-14] MEDS ORDERED: Sennosides/Docusate Sodium 50-8.6 MG Tab PO PRN (10:50)
[2024-06-14] MEDS ORDERED: Magnesium Hydroxide 400 MG/5 ML Susp 30 ML Cup PO PRN (10:50)
[2024-06-14] MEDS ORDERED: Albuterol 0.083% 2.5 MG/3 ML Neb Soln NEB PRN (10:50)
[2024-06-14] MEDS ORDERED: Baclofen 10 MG Tab PO PRN (10:50)
[2024-06-14] MEDS ORDERED: Ondansetron 4 MG Tab.DIS PO PRN (10:50)
[2024-06-14] MEDS ORDERED: Ondansetron 4 MG/2 ML SDV IV PRN (10:50)
[2024-06-14] MEDS ORDERED: Lidocaine 4% Patch TOP PRN (10:50)
[2024-06-14] MEDS ORDERED: Non-Formulary Medication 1 Each (Sennosides [Senna] 8.6 MG Capsule) PO SCH (10:50)
[2024-06-14] MEDS: Albuterol/Ipratropium 3.0-0.5 MG/3 ML Neb Soln NEB SCH (11:14)
[2024-06-14] MEDS: Azithromycin 250 MG Tab PO ONE (11:47)
[2024-06-14] MEDS: cefTRIAXone 2 GM in Sodium Chloride 0.9% 50 ML IV SCH (11:47)
[2024-06-14] MEDS: methylPREDNISolone Sodium Succinate 125 MG/2 ML SDV IVPUSH SCH (11:57)
[2024-06-14] MEDS: Sennosides 8.6 MG Tab PO SCH (12:38)
[2024-06-14] MEDS: Diclofenac Sodium 1% Gel 100 GM Tube TOP SCH (12:39)
[2024-06-14] MEDS: Gabapentin 100 MG Cap PO SCH (14:03)
[2024-06-14] MEDS: Acetaminophen 325 MG Tab PO SCH (14:03)
[2024-06-14] MEDS: fentaNYL 25 MCG/HR Transdermal Patch TRDERM SCH (14:03)
[2024-06-14] MEDS: VERIFY FENTANYL PATCH SCH (14:04)
[2024-06-14] MEDS: Lactobacillus Rhamnosus GG (Probiotic) Cap PO SCH (20:24)
[2024-06-14] MEDS: busPIRone 5 MG Tab PO SCH (20:24)
[2024-06-14] MEDS: Aspirin 81 MG Tab.EC PO SCH (20:24)
[2024-06-14] MEDS: oxyCODONE 5 MG Tab PO PRN (23:15)
[2024-06-15 05:57] LABS: HEMATOCRIT 39.7 % (34.3-46.0); HEMOGLOBIN 12.8 g/dL (11.2-15.5); MEAN CORPUSCULAR HEMOGLOBIN 29.6 pg (31.6-35.5); MEAN CORPUSCULAR HGB CONC 32.2 g/dL (31.6-35.5); MEAN CORPUSCULAR VOLUME 91.7 fL (81.4-99.0); RED BLOOD CELL COUNT 4.33 M/uL (3.77-5.24); WHITE BLOOD CELL COUNT,WBC 9.1 K/uL (3.2-11.0)
[2024-06-15 06:14] LABS: CREATININE 1.7 mg/dL (0.6-1.0); EST CRCL DRUG DOSING (CG) 18.09 mL/min; POTASSIUM,K 5.2 mmol/L (3.6-5.2)
[2024-06-15 06:17] LABS: ANION GAP 18.2 mmol/L (5.0-14.0)
[2024-06-15] MEDS ORDERED: Levothyroxine 25 MCG Tab PO SCH (07:30)
[2024-06-15] MEDS: Levothyroxine 50 MCG Tab PO SCH (07:31)
[2024-06-15] MEDS: predniSONE 20 MG Tab PO SCH (07:31)
[2024-06-15] MEDS ORDERED: Sodium Chloride 0.9% 10 ML Syringe IV PRN (08:29)
[2024-06-15] MEDS: Polyethylene Glycol 3350 Powder 17 GM Packet PO SCH (08:39)
[2024-06-15] MEDS: atorvaSTATin 20 MG Tab PO SCH (08:39)
[2024-06-15] MEDS: Azithromycin 250 MG Tab PO SCH (08:41)
[2024-06-15] MEDS ORDERED: Non-Formulary Medication 1 Each (Fentanyl [Fentanyl] 1 EACH Patch.Td72) TOP SCH (09:00)
[2024-06-15] MEDS: Insulin Lispro 100 Unit/ML 3 ML KwikPen SUBCUT SCH (11:46)
[2024-06-15] MEDS: Insulin Lispro 100 Unit/ML 3 ML KwikPen SUBCUT ONE (11:54)
[2024-06-15] MEDS: busPIRone 10 MG Tab PO SCH (11:58)
[2024-06-15] MEDS: guaiFENesin/Dextromethorphan 100-10 MG/5 ML Soln 10 ML Cup PO PRN (12:17)
[2024-06-16] MEDS: Benzonatate 100 MG Cap PO PRN (05:13)
[2024-06-16 05:54] LABS: CALCIUM 10.2 mg/dL (8.5-10.1); CREATININE 1.4 mg/dL (0.6-1.0); EST CRCL DRUG DOSING (CG) 21.97 mL/min; POTASSIUM,K 5.3 mmol/L (3.6-5.2)
[2024-06-16 05:56] LABS: ANION GAP 14.3 mmol/L (5.0-14.0)
[2024-06-16] MEDS: Cefdinir 300 MG Cap PO ONE (11:01)
== END 2024-06-16 13:01 | disposition home or self-care (01) | DRG 189 ==
LOC: JP.ED 03:09 → JP.MS 09:52
PROVIDERS: ADMIT Internal Medicine; ATTEND Internal Medicine
PROC: 4A033R1 Measurement of Arterial Saturation, Peripheral, Percutaneous Approach (ICD-10-PCS; principal; 2024-06-14)
DX: J96.01 Acute respiratory failure with hypoxia (principal); J20.9 Acute bronchitis, unspecified; N18.9 Chronic kidney disease, unspecified; G89.29 Other chronic pain; E03.9 Hypothyroidism, unspecified; Z66 Do not resuscitate; M54.50 Low back pain, unspecified; N18.31 Chronic kidney disease, stage 3a; Z79.890 Hormone replacement therapy; J45.909 Unspecified asthma, uncomplicated; H91.90 Unspecified hearing loss, unspecified ear; Z79.1 Long term (current) use of non-steroidal anti-inflammatories (NSAID); Z68.31 Body mass index [BMI] 31.0-31.9, adult; H54.7 Unspecified visual loss; E78.00 Pure hypercholesterolemia, unspecified; K59.09 Other constipation; E11.22 Type 2 diabetes mellitus with diabetic chronic kidney disease; E11.65 Type 2 diabetes mellitus with hyperglycemia; E66.9 Obesity, unspecified; Z96.649 Presence of unspecified artificial hip joint; Z79.82 Long term (current) use of aspirin; Z79.899 Other long term (current) drug therapy; Z68.34 Body mass index [BMI] 34.0-34.9, adult; Z86.16 Personal history of COVID-19; Z98.49 Cataract extraction status, unspecified eye; Z90.710 Acquired absence of both cervix and uterus; Z98.890 Other specified postprocedural states
CPT/HCPCS: 36415; 36600; 71045; 71275 ×2; 80048; 82803; 83605; 83880; 84145; 85025; 85379; 86140; 87428; 94640 ×2; 96374; 99285 ×2; A9270 ×2; J2919; J7030; Q9967; 82947; 85027; 94667; 94668; 99222; 99232; 99238; J0696; J1815; J7512

== ENCOUNTER 2025-01-27 20:26 | Inpatient (IN) | payer MEDICARE, BC ==
[2025-01-27 21:14] LABS: BASOPHILS ABSOLUTE AUTO 0.04 K/uL (0.00-0.10); BASOPHILS PERCENT AUTO 0.4 % (0.1-1.3); EOSINOPHILS ABSOLUTE AUTO 0.10 K/uL (0.00-0.40); EOSINOPHILS PERCENT AUTO 1.0 % (0.0-5.4); IMMATURE GRAN ABSOLUTE AUTO 0.09 K/uL (0.00-0.23); IMMATURE GRAN PERCENT AUTO 0.9 % (0.0-0.7); LYMPHOCYTES ABSOLUTE AUTO 0.71 K/uL (0.8-3.3); LYMPHOCYTES PERCENT AUTO 7.3 % (11.4-47.7); MONOCYTES ABSOLUTE AUTO 0.50 K/uL (0.20-0.90); MONOCYTES PERCENT AUTO 5.2 % (3.3-12.6); NEUTROPHILS ABSOLUTE AUTO 8.22 K/uL (1.0-7.6); NEUTROPHILS PERCENT AUTO 85.2 % (40.0-78.1); PLATELET COUNT,PLT 242 K/uL (130-375); RED BLOOD CELL COUNT 4.72 M/uL (3.77-5.24); WHITE BLOOD CELL COUNT,WBC 9.7 K/uL (3.2-11.0)
[2025-01-27 21:44] LABS: A/G RATIO 0.8 (1.2-2.2); ALANINE AMINOTRANSFERASE,ALT 21 U/L (12-78); ASPARTATE AMNIOTRANSFERASE,AST 19 U/L (15-37); BILIRUBIN TOTAL 0.3 mg/dL (0.2-1.0); BLOOD UREA NITROGEN,BUN 17 mg/dL (7-18); CARBON DIOXIDE,CO2 29 mmol/L (21-32); CHLORIDE,CL 97 mmol/L (100-108); CREATININE 1.2 mg/dL (0.6-1.0); EST CRCL DRUG DOSING (CG) 23.28 mL/min; ESTIMATED GFR 44 mL/min (>60); GLUCOSE RANDOM 213 mg/dL (74-106); POTASSIUM,K 4.5 mmol/L (3.6-5.2); PROTEIN TOTAL,TP 6.2 g/dL (6.4-8.2); SODIUM,NA 133 mmol/L (140-148)
[2025-01-27 21:57] LABS: APPEARANCE,URINE CLOUDY (CLEAR); GLUCOSE,URINE 100 mg/dL (NEGATIVE); OCCULT BLOOD,URINE MODERATE (NEGATIVE)
[2025-01-27 22:06] LABS: SQUAMOUS EPITHELIAL CELLS,UR RARE /HPF; UROTHELIAL CELLS,URINE RARE /HPF
[2025-01-27] MEDS: Furosemide 20 MG/2 ML VIAL IVPUSH ONE (22:37)
[2025-01-28] MEDS ORDERED: Sodium Chloride 0.9% 10 ML Syringe FLUSH PRN (00:02)
[2025-01-28] MEDS ORDERED: Nystatin Topical Powder 15 GM Bottle TOP PRN (00:02)
[2025-01-28] MEDS ORDERED: Insulin Lispro 100 Unit/ML 3 ML KwikPen SUBCUT SCH (00:02)
[2025-01-28] MEDS: Ciprofloxacin in D5W 400 MG in Premix Bag 1 BAG IV SCH ×2 (00:45→21:41)
[2025-01-28 05:52] LABS: PLATELET COUNT,PLT 232.0 K/uL (130-375); RED BLOOD CELL COUNT 4.54 M/uL (3.77-5.24); WHITE BLOOD CELL COUNT,WBC 14.3 K/uL (3.2-11.0)
[2025-01-28 06:07] LABS: BLOOD UREA NITROGEN,BUN 17.0 mg/dL (7-18); CARBON DIOXIDE,CO2 31.0 mmol/L (21-32); CHLORIDE,CL 99.0 mmol/L (100-108); CREATININE 1.4 mg/dL (0.6-1.0); EST CRCL DRUG DOSING (CG) 19.57 mL/min; ESTIMATED GFR 36.0 mL/min (>60); GLUCOSE RANDOM 140.0 mg/dL (74-106); POTASSIUM,K 4.5 mmol/L (3.6-5.2); SODIUM,NA 136.0 mmol/L (140-148)
[2025-01-28] MEDS: Cholecalciferol (Vitamin D3) 25 MCG Tab PO SCH (08:14)
[2025-01-28] MEDS: CHECK FENTANYL TOP SCH (08:14)
[2025-01-28] MEDS: fentaNYL 25 MCG/HR Transdermal Patch TOP SCH (09:33)
[2025-01-28] MEDS: FLU (Fluad Triv) 25-26 (65UP)/MF59C/PF 45 MCG/0.5 ML Syringe IM ONE (11:59)
[2025-01-28] MEDS: Diphtheria,Pertussis(Acell),Tetanus Vaccine 0.5 ML Syringe IM ONE (12:04)
[2025-01-29 06:06] LABS: PLATELET COUNT,PLT 219.0 K/uL (130-375); RED BLOOD CELL COUNT 4.21 M/uL (3.77-5.24); WHITE BLOOD CELL COUNT,WBC 9.5 K/uL (3.2-11.0)
[2025-01-29 06:22] LABS: BLOOD UREA NITROGEN,BUN 16.0 mg/dL (7-18); CARBON DIOXIDE,CO2 32.0 mmol/L (21-32); CHLORIDE,CL 104.0 mmol/L (100-108); CREATININE 1.1 mg/dL (0.6-1.0); EST CRCL DRUG DOSING (CG) 24.9 mL/min; ESTIMATED GFR 48.0 mL/min (>60); GLUCOSE RANDOM 155.0 mg/dL (74-106); POTASSIUM,K 4.9 mmol/L (3.6-5.2); SODIUM,NA 142.0 mmol/L (140-148)
[2025-01-29] MEDS ORDERED: Nystatin Topical Powder 15 GM Bottle TOP PRN (10:19)
[2025-01-30 05:58] LABS: PLATELET COUNT,PLT 217.0 K/uL (130-375); RED BLOOD CELL COUNT 4.2 M/uL (3.77-5.24); WHITE BLOOD CELL COUNT,WBC 6.8 K/uL (3.2-11.0)
[2025-01-30 06:14] LABS: BLOOD UREA NITROGEN,BUN 13.0 mg/dL (7-18); CARBON DIOXIDE,CO2 33.0 mmol/L (21-32); CHLORIDE,CL 99.0 mmol/L (100-108); CREATININE 1.1 mg/dL (0.6-1.0); EST CRCL DRUG DOSING (CG) 24.9 mL/min; ESTIMATED GFR 48.0 mL/min (>60); GLUCOSE RANDOM 160.0 mg/dL (74-106); POTASSIUM,K 4.4 mmol/L (3.6-5.2); SODIUM,NA 137.0 mmol/L (140-148)
[2025-01-30] MEDS: Furosemide 40 MG/4 ML VIAL IVPUSH ONE (10:09)
[2025-01-30] MEDS: Albuterol 0.083% 2.5 MG/3 ML Neb Soln NEB PRN (10:09)
[2025-01-31 06:13] LABS: BLOOD UREA NITROGEN,BUN 14.0 mg/dL (7-18); CARBON DIOXIDE,CO2 35.0 mmol/L (21-32); CHLORIDE,CL 97.0 mmol/L (100-108); CREATININE 1.1 mg/dL (0.6-1.0); EST CRCL DRUG DOSING (CG) 24.9 mL/min; ESTIMATED GFR 48.0 mL/min (>60); GLUCOSE RANDOM 171.0 mg/dL (74-106); POTASSIUM,K 4.2 mmol/L (3.6-5.2); SODIUM,NA 137.0 mmol/L (140-148)
[2025-01-31] MEDS: Furosemide 40 MG/4 ML VIAL IVPUSH ONE (12:02)
[2025-01-31] MEDS: Acetylcysteine 20% 200 MG/ML 4 ML Nebulizer Soln SDV NEB SCH (14:43)
== END 2025-02-01 14:05 | disposition home or self-care (01) | DRG 698 ==
LOC: JP.ED 20:26 → JP.MS 23:16
PROVIDERS: ADMIT Internal Medicine; ATTEND Hospitalist
DX: T83.511A Infection and inflammatory reaction due to indwelling urethral catheter, initial encounter (principal); N39.0 Urinary tract infection, site not specified; J18.9 Pneumonia, unspecified organism; J96.01 Acute respiratory failure with hypoxia; N17.9 Acute kidney failure, unspecified; N30.00 Acute cystitis without hematuria; Z68.41 Body mass index [BMI] 40.0-44.9, adult; I50.9 Heart failure, unspecified; Z79.890 Hormone replacement therapy; Z66 Do not resuscitate; N18.32 Chronic kidney disease, stage 3b; E11.22 Type 2 diabetes mellitus with diabetic chronic kidney disease; H91.90 Unspecified hearing loss, unspecified ear; H54.7 Unspecified visual loss; E78.00 Pure hypercholesterolemia, unspecified; K59.00 Constipation, unspecified; N18.9 Chronic kidney disease, unspecified; E03.9 Hypothyroidism, unspecified; E66.9 Obesity, unspecified; D64.9 Anemia, unspecified; Z96.649 Presence of unspecified artificial hip joint; Z85.038 Personal history of other malignant neoplasm of large intestine; Z86.16 Personal history of COVID-19; Z79.899 Other long term (current) drug therapy; Z98.49 Cataract extraction status, unspecified eye; Z98.890 Other specified postprocedural states; Z90.710 Acquired absence of both cervix and uterus
CPT/HCPCS: 36415; 71045 ×2; 80053; 81001; 83605; 83880; 84484 ×2; 85025; 87086; 93005; 96365; 96375; 99285; J0696; J1938; 80048; 82947; 83735; 85027; 90471; 90653; 90715; 93010; 94640; 94667; 94668; 97162-GP; 97165-GO; 99223; 99231; 99232; 99238; A9270-GY; G0008; J0744; J1271; J1650